=== PATIENT | female | born 1930 | race Caucasian/White ===

== ENCOUNTER 2018-01-27 07:57 | Inpatient (IN) | payer MEDICARE, BC ==
[2018-01-27] MEDS ORDERED: NORMAL SALINE 1000 ML 1,000 ML IV ONE ×2 (08:04→09:54)
--- NOTE | 2018-01-27 08:17 | ER Document Report ---
ED General - General Stated Complaint: URINARY COMPLICATIONS Time Seen by Provider: 01/27/18 08:03 TRAVEL OUTSIDE OF THE [place] IN LAST 30 DAYS: No - HPI Notes: Patient is an 87-year-old female with a history of dementia, chronic kidney disease currently not on dialysis, acid reflux who presents to the ED with daughter complaining of a fever over the last couple days with one episode of nausea and vomiting this morning. Daughter states that she did not have any Tylenol or Motrin at home so she cannot give any to her. Daughter states that she was started on Macrobid for a urinary infection yesterday. Daughter states that she is otherwise been eating and drinking without any difficulties. She is having normal bowel movements. She has not been complaining of any specific pain. Daughter states that her mentation and speech are at baseline, but her behavior was slightly different as she did not want to walk and was shivering when she had her fever. No other concerns or complaints at this time. Denies any headache, fever, head injury, neck pain, changes in vision/speech/mentation/ hearing, URI, sore throat, chest pain, palpitations, syncope, cough, shortness of breath, wheeze, dyspnea, abdominal pain, diarrhea, loss of control of bowel or bladder, numbness/tingling, saddle anesthesia, muscle paralysis/weakness, or rash. - Related Data Allergies/Adverse Reactions: Sulfa (Sulfonamide Antibiotics) Allergy (Verified 06/18/12 11:24) Past Medical History - Social History Smoking Status: Never Smoker Family History: Reviewed & Not Pertinent GI Medical History: Reports: Hx Gastroesophageal Reflux Disease Psychiatric Medical History: Reports: Hx Dementia, Hx Depression Past Surgical History: Reports: Hx Appendectomy, Hx Hysterectomy, Hx Orthopedic Surgery - L elbow - Immunizations Hx Diphtheria, Pertussis, Tetanus Vaccination: Yes Review of Systems - Review of Systems -: Yes All other systems reviewed and negative - as reviewed with daughter as well Physical Exam - Vital signs Vitals: Pulse Ox 96 01/27/18 08:08 - Notes Notes: PHYSICAL EXAMINATION: GENERAL: Well-appearing, well-nourished and in no acute distress. HEAD: Atraumatic, normocephalic. Non-tender. EYES: Pupils equal round and reactive to light, extraocular movements intact, sclera anicteric, conjunctiva are normal. No nystagmus. ENT: Nares patent and without discharge. oropharynx clear without exudates. No tonsilar hypertrophy or erythema. Moist mucous membranes. NECK: Normal range of motion, supple without lymphadenopathy. No rigidity/ meningismus. kernig/brudzinski neg. No midline tenderness. LUNGS: Breath sounds clear to auscultation bilaterally and equal. No wheezes rales or rhonchi. HEART: Regular rate and rhythm without murmurs, rubs, gallops. ABDOMEN: Soft, nontender, nondistended abdomen. No guarding, no rebound. Normal bowel sounds present. No CVA tenderness bilaterally. Musculoskeletal: Ext b/l: FROM to passive/active. Strength 5+/5. No deficits noted. No bony tenderness of extremities. Extremities: No cyanosis, clubbing, or edema b/l. Peripheral pulses 2+. Capillary refill less than 2 seconds. NEUROLOGICAL: NIH 2 for not knowing age/time, but is baseline for pt per daughter. GCS 15. Cranial nerves grossly intact. Normal speech. Normal sensory, motor exams. Reflexes 2+ b/l. MI's negative. Pronator drift negative. Heel/nunes, finger/nose wnl. PSYCH: flat SKIN: Warm, Dry, normal turgor, no rashes or lesions noted. Course - Re-evaluation Re-evalutation: 01/27/18 08:27 EMS gave zofran, tylenol, and 500cc fluid. Pt states that she is feeling better than this morning. Labs, fluids ordered. 01/27/18 09:24 Recheck on patient. No new concerns or complaints. No pain. No nuchal rigidity. We will recheck a temp. Lactic 2.2 and WBC 21.3k with left shift. UA unremarkable, cultures pending. CXR unremarkable. EKG pending Rocephin has been started 01/27/18 09:[address] Auguste, hospitalist, who accepted pt to [facility]. - Vital Signs Vital signs: Temp Pulse Resp BP Pulse Ox 102 F H 94 23 H 166/67 H 93 01/27/18 08:18 01/27/18 08:18 01/27/18 09:01 01/27/18 09:01 01/27/18 09:01 - Laboratory Result Diagrams: 01/27/18 08:06 08/31/18 08:06 Laboratory results interpreted by me: 01/27/18 01/27/18 01/27/18 08:06 08:06 08:06 WBC 21.3 H Seg Neuts % (Manual) 79 H Band Neutrophils % 7 H Lymphocytes % (Manual) 9 L Abs Neuts (Manual) 18.3 H Est GFR (Non-Af Amer) 53 L Glucose 112 H Lactic Acid 2.2 H AST 48 H Discharge - Discharge Clinical Impression: Fever Qualifiers: Fever type: unspecified Qualified Code(s): R50.9 - Fever, unspecified Condition: Fair Disposition: ADMITTED INPATIENT Admitting Provider: Hospitalist - Dr. Auguste Unit Admitted: IMCU Referrals: ALEXANDER TORRES MD [Primary Care Provider] - Follow up as needed
[2018-01-27 08:34] LABS: HEMATOCRIT 38.9 % (36.0-47.0); HEMOGLOBIN 13.2 g/dL (12.0-15.5); MEAN CORPUSCULAR HEMOGLOBIN 30.8 pg (27.0-33.4); MEAN CORPUSCULAR HGB CONC 33.8 g/dL (32.0-36.0); MEAN CORPUSCULAR VOLUME 91 fl (80-97); PLATELET COUNT 254 10^3/uL (150-450); RED BLOOD COUNT 4.27 10^6/uL (3.72-5.28); RED CELL DISTRIBUTION WIDTH 12.9 % (11.5-14.0); WHITE BLOOD COUNT 21.3 10^3/uL (4.0-10.5)
[2018-01-27 08:39] LABS: ALANINE AMINOTRANSFERASE 31 U/L (9-52); ALBUMIN 3.8 g/dL (3.5-5.0); ALKALINE PHOSPHATASE 50 U/L (38-126); ANION GAP 13 (5-19); ASPARTATE AMINO TRANSFERASE 48 U/L (14-36); BILIRUBIN,DIRECT 0.2 mg/dL (0.0-0.4); BILIRUBIN,TOTAL 0.5 mg/dL (0.2-1.3); BLOOD UREA NITROGEN 15 mg/dL (7-20); CARBON DIOXIDE 24 mmol/L (22-30); CHLORIDE 105 mmol/L (98-107); GLUCOSE 112 mg/dL (75-110); POTASSIUM 3.9 mmol/L (3.6-5.0); SODIUM 142.2 mmol/L (137-145); TOTAL PROTEIN 6.5 g/dL (6.3-8.2)
[2018-01-27 08:43] LABS: APPEARANCE,URINE CLEAR; BILIRUBIN,URINE NEGATIVE (NEGATIVE); COLOR,URINE YELLOW; GLUCOSE, URINE NEGATIVE (NEGATIVE); KETONES,URINE NEGATIVE (NEGATIVE); LEUKOCYTE ESTERASE,URINE NEGATIVE (NEGATIVE); NITRITE,URINE NEGATIVE (NEGATIVE); PROTEIN,URINE NEGATIVE (NEGATIVE); UROBILINOGEN,URINE NEGATIVE mg/dL (<2.0)
--- NOTE | 2018-01-27 08:49 | RADIOLOGY REPORT (SQ) ---
EXAM DESCRIPTION: CHEST SINGLE VIEW COMPLETED DATE/TIME: 01/27/2018 8:34 am REASON FOR STUDY: fever COMPARISON: 06/12/2014 EXAM PARAMETERS: NUMBER OF VIEWS: One view. TECHNIQUE: Single frontal radiographic view of the chest acquired. RADIATION DOSE: NA LIMITATIONS: None. FINDINGS: LUNGS AND PLEURA: No opacities, masses or pneumothorax. No pleural effusion. MEDIASTINUM AND HILAR STRUCTURES: No masses. Contour normal. HEART AND VASCULAR STRUCTURES: Heart normal in size. Normal vasculature. BONES: No acute findings. HARDWARE: None in the chest. OTHER: No other significant finding. IMPRESSION: NO ACUTE RADIOGRAPHIC FINDING IN THE CHEST. TECHNICAL DOCUMENTATION: JOB ID: [id number] [employer]- All Rights Reserved Reading location - IP/workstation name: [email or web address]
[2018-01-27] MEDS ORDERED: CEFTRIAXONE 1 GM/D5W RTU 50 ML IV ONE (08:52)
[2018-01-27 08:56] LABS: ABSOLUTE LYMPHOCYTES# (MANUAL) 1.9 10^3/uL (0.5-4.7); ABSOLUTE MONOCYTES # (MANUAL) 1.1 10^3/uL (0.1-1.4); ABSOLUTE NEUTROPHILS# (MANUAL) 18.3 10^3/uL (1.7-8.2); BAND NEUTROPHILS % (MANUAL) 7 % (3-5); BASOPHILS % (MANUAL) 0 % (0-2); EOSINOPHILS % (MANUAL) 0 % (0-6); LYMPHOCYTES % (MANUAL) 9 % (13-45); MONOCYTES % (MANUAL) 5 % (3-13); SEGMENTED NEUTROPHILS % (MAN) 79 % (42-78); TOTAL CELLS COUNTED 100
[2018-01-27 08:57] LABS: PLATELET COMMENT ADEQUATE; RBC MORPHOLOGY COMMENT NORMO-CYTIC/CHROMIC; TOXIC GRANULATION SLIGHT; TOXIC VACUOLATION PRESENT
[2018-01-27] MEDS ORDERED: CEFTRIAXONE INJ 1000 MG VIAL ONE (09:17)
[2018-01-27] MEDS ORDERED: CEFTRIAXONE SODIUM 1,000 MG in NORMAL SALINE 50 ML IV ONE (10:00)
--- NOTE | 2018-01-27 13:03 | EKG REPORT ---
SEVERITY:- ABNORMAL ECG - SINUS RHYTHM BORDERLINE LEFT AXIS DEVIATION NONSPECIFIC T ABNORMALITIES, ANT-LAT LEADS : Confirmed by: Bryon Goodwin MD 27-Jan-2018 13:02:49
[2018-01-27 14:41] LABS: BACTERIA (WET MOUNT) 3+ BACTERIA SEEN; EPITHELIALS (WET MOUNT) 3+ EPITHELIALS SEEN; RBCS (WET MOUNT) FEW RBCS SEEN; T.VAGINALIS (WET MOUNT) NO TRICHOMONAS SEEN; WBCS (WET MOUNT) 1+ WBCS SEEN; YEAST (WET MOUNT) NO YEAST SEEN
[2018-01-27 15:27] LABS: A TYPE INFLUENZA AG NEGATIVE (NEGATIVE); B INFLUENZA AG NEGATIVE (NEGATIVE)
[2018-01-27] MEDS: NORMAL SALINE 1000 ML 1,000 ML IV PRN (15:53)
[2018-01-27] MEDS: HEPARIN SOD (PORCINE) 5,000 UNIT/ML 1 ML SYRINGE SUBCUT SCH ×2 (15:53→21:02)
--- NOTE | 2018-01-27 16:01 | RADIOLOGY REPORT (SQ) ---
EXAM DESCRIPTION: U/S RETROPERITON (RENAL/AORTA) COMPLETED DATE/TIME: 01/27/2018 3:42 pm REASON FOR STUDY: hx of bladder prolapse, r/o pyelo, nephrolith COMPARISON: None. TECHNIQUE: Dynamic and static grayscale images acquired of the kidneys and bladder and recorded on P ACS. Additional selected color Doppler and spectral images recorded. LIMITATIONS: None. FINDINGS: RIGHT KIDNEY: Normal size. Normal echogenicity. No solid or suspicious masses. No hydronep hrosis. No calcifications. LEFT KIDNEY: Normal size. Normal echogenicity. No solid or suspicious masses. No hydronephrosis. No calcifications. BLADDER: Empty. Not visualized. OTHER FINDINGS: No other significant finding. IMPRESSION: NORMAL RENAL ULTRASOUND. TECHNICAL DOCUMENTATION: JOB ID: [id number] [employer] All Rights Reserved Reading location - IP/workstation name: [email or web address]
[2018-01-27 16:36] LABS: CHLAM PCR NOT DETECTED (NOT DETECT); GON PCR NOT DETECTED (NOT DETECT)
[2018-01-27] MEDS: PIPERACILLIN SODIUM/TAZOBACTAM 3.375 GM in NORMAL SALINE 100 ML IV SCH ×2 (17:55→23:29)
[2018-01-27] MEDS ORDERED: FLUCONAZOLE 100 MG TABLET PO ONE (20:45)
[2018-01-27 21:23] LABS: ABSOLUTE BASOPHILS # (AUTO) 0.1 10^3/uL (0.0-0.2); ABSOLUTE EOSINOPHILS # (AUTO) 0.3 10^3/uL (0.0-0.6); ABSOLUTE LYMPHOCYTES (AUTO) 3.2 10^3/uL (0.5-4.7); ABSOLUTE MONOCYTES (AUTO) 1.2 10^3/uL (0.1-1.4); ABSOLUTE NEUT (AUTO) 18.3 10^3/uL (1.7-8.2); BASOPHILS % (AUTO) 0.3 % (0-2); EOSINOPHILS % (AUTO) 1.4 % (0-6); HEMATOCRIT 36.1 % (36.0-47.0); MEAN CORPUSCULAR HEMOGLOBIN 30.7 pg (27.0-33.4); MEAN CORPUSCULAR HGB CONC 33.3 g/dL (32.0-36.0); MEAN CORPUSCULAR VOLUME 92 fl (80-97); MONOCYTES % (AUTO) 5.2 % (3-13); PLATELET COUNT 234 10^3/uL (150-450); RED BLOOD COUNT 3.92 10^6/uL (3.72-5.28); SEGMENTED NEUTROPHILS % (AUTO) 79.1 % (42-78); TOTAL CELLS COUNTED % (AUTO) 100 %; WHITE BLOOD COUNT 23.1 10^3/uL (4.0-10.5)
[2018-01-28] MEDS: NORMAL SALINE 1000 ML 1,000 ML IV PRN ×2 (02:25→16:25)
[2018-01-28] MEDS: PIPERACILLIN SODIUM/TAZOBACTAM 3.375 GM in NORMAL SALINE 100 ML IV SCH ×4 (05:38→23:53)
[2018-01-28] MEDS: HEPARIN SOD (PORCINE) 5,000 UNIT/ML 1 ML SYRINGE SUBCUT SCH ×3 (05:45→21:30)
[2018-01-28] MEDS ORDERED: VANCOMYCIN HCL 0 MG in DEXTROSE 5%-WATER 250 ML IV NR (07:30)
[2018-01-28] MEDS ORDERED: VANCOMYCIN HCL 1,250 MG in DEXTROSE 5%-WATER 250 ML IV ONE (07:45)
[2018-01-28 08:23] LABS: ABSOLUTE BASOPHILS # (AUTO) 0.1 10^3/uL (0.0-0.2); ABSOLUTE EOSINOPHILS # (AUTO) 0.5 10^3/uL (0.0-0.6); ABSOLUTE LYMPHOCYTES (AUTO) 2.5 10^3/uL (0.5-4.7); ABSOLUTE MONOCYTES (AUTO) 0.8 10^3/uL (0.1-1.4); ABSOLUTE NEUT (AUTO) 11.2 10^3/uL (1.7-8.2); BASOPHILS % (AUTO) 0.7 % (0-2); HEMATOCRIT 37.4 % (36.0-47.0); HEMOGLOBIN 12.7 g/dL (12.0-15.5); LYMPHOCYTES % (AUTO) 16.5 % (13-45); MEAN CORPUSCULAR HEMOGLOBIN 30.7 pg (27.0-33.4); MEAN CORPUSCULAR VOLUME 90 fl (80-97); MONOCYTES % (AUTO) 5.6 % (3-13); PLATELET COUNT 220 10^3/uL (150-450); RED BLOOD COUNT 4.14 10^6/uL (3.72-5.28); RED CELL DISTRIBUTION WIDTH 13.1 % (11.5-14.0); SEGMENTED NEUTROPHILS % (AUTO) 74.2 % (42-78); TOTAL CELLS COUNTED % (AUTO) 100 %; WHITE BLOOD COUNT 15.1 10^3/uL (4.0-10.5)
[2018-01-28] MEDS: VANCOMYCIN HCL 750 MG in DEXTROSE 5%-WATER 250 ML IV SCH (09:21)
[2018-01-28] MEDS: GUAIFENESIN SYRP 200 MG/10 ML UDC PO SCH ×2 (13:49→17:51)
--- NOTE | 2018-01-28 15:21 | PDOC H&P ---
History of Present Illness Admission Date/PCP: 01/27/18 11:51 ALEXANDER TORRES MD History of Present Illness: EZRA IVAN is a 87 year old female with a past medical history of hypertension, CKD from long-standing uncontrolled hypertension, dementia, GERD, hypothyroidism, history of urinary bladder prolapse and recurrent urinary tract infections who was brought in because of fever and chills. Patient is not able to carry out appropriate conversations in her baseline. History is obtained from the daughter who says that patient has been having recurrent urinary tract infections in between June and December of this year she had a total of 6 episodes of UTI. She has been treated alternatingly with Augmentin and nitrofurantoin. Daughter says that patient was recently diagnosed again with UTI the other day and was sent home on Macrobid. She says that patient does not complain of a UDS because of her dementia. Daughter says that yesterday patient was noted to be more confused than usual. She was also noted to be increasingly weak last night. This morning around 3 AM, patient woke up with high fever with a temperature 102.8F and was having chills and was shivering. Patient also became more lethargic and sleepy. Her daughter says that patient has had a pessary placed and since then she has been having recurrent vaginal greenish malodorous discharge over the past 4-6 months. She says that patient was evaluated by a uro-brothel keeper in [place] and that patient's pessary was removed a few months and it was reportedly filled with purulent material. Patient says that patient was treated for her vaginal discharge a few weeks ago and this has been improving. Past Medical History GI Medical History: Reports: Gastroesophageal Reflux Disease Psychiatric Medical History: Reports: Dementia, Depression Past Surgical History Past Surgical History: Reports: Appendectomy, Hysterectomy, Orthopedic Surgery - L elbow Social History Smoking Status: Never Smoker Frequency of Alcohol Use: None Hx Recreational Drug Use: No Drugs: None Hx Prescription Drug Abuse: No - Advance Directive Resuscitation Status: Do Not Resuscitate Family History Family History: Reviewed & Not Pertinent Parental Family History Reviewed: Yes - no premautre CAD Children Family History Reviewed: No Sibling(s) Family History Reviewed.: No Medication/Allergy Home Medications: Calcium Carbonate/Vitamin D3 [Calcium 600 + Vit D Caplet] 1 tab-cap PO DAILY Cholecalciferol (Vitamin D3) [Vitamin D3 2000 unit Tablet] 2,000 unit PO DAILY 01/27/18 Cranberry Conc/Ascorbic Acid [Cranberry Concentrate Softgel] 3 tab PO DAILY Docusate Sodium [Colace 100 mg Capsule] 300 mg PO DAILY 01/27/18 Escitalopram Oxalate [Lexapro 10 mg Tablet] 10 mg PO MOWEFR 01/27/18 Estrogens,Conjugated [Premarin Vaginal Cream (0.625 mg/gm) 30 gm] 30 gm VG [id number] 01/27/18 L.acidoph,Paracasei, B.lactis [Probiotic] 1 each PO DAILY 01/27/18 Levothyroxine Sodium [Synthroid] 75 mcg PO DAILY 01/27/18 Meclizine HCl [Antivert 12.5 mg Tablet] 12.5 mg PO DAILYP PRN 01/27/18 Mirabegron [Myrbetriq] 50 mg PO DAILY 01/27/18 Multivitamin [One-A-Day Essential] 1 each PO DAILY 01/27/18 Omeprazole Magnesium [Prilosec Otc] 20 mg PO DAILY 01/27/18 Allergies/Adverse Reactions: Sulfa (Sulfonamide Antibiotics) Allergy (Verified 06/18/12 11:24) Review of Systems All systems: reviewed and no additional remarkable complaints except as stated - As mentioned in HPI Physical Exam Vital Signs: Temp Pulse Resp BP Pulse Ox 97.8 F 71 16 143/52 H 97 01/27/18 15:55 01/27/18 15:55 01/27/18 15:55 01/27/18 15:55 01/27/18 15:55 Intake & Output 01/26/18 01/27/18 01/28/18 06:59 06:59 06:59 Intake Total 1300 Output Total 1425 Balance -125 Weight 140 lb 3.424 oz General appearance: PRESENT: no acute distress, well-developed, well-nourished Head exam: PRESENT: atraumatic, normocephalic Eye exam: PRESENT: conjunctiva pink, EOMI, PERRLA. ABSENT: scleral icterus Ear exam: PRESENT: normal external ear exam Neck exam: ABSENT: carotid bruit, JVD, lymphadenopathy, thyromegaly Respiratory exam: PRESENT: clear to auscultation christen. ABSENT: rales, rhonchi, wheezes Cardiovascular exam: PRESENT: RRR. ABSENT: diastolic murmur, rubs, systolic murmur Pulses: PRESENT: normal dorsalis pedis pul GI/Abdominal exam: PRESENT: normal bowel sounds, soft. ABSENT: distended, guarding, mass, organolmegaly, rebound, tenderness Rectal exam: PRESENT: deferred Gentrourinary exam: PRESENT: other - Pelvic examination as well as a speculum examination was done. Pelvic examination reveals seen whitish cervical discharge, [id number]. Also noted is prominence of the urinary bladder against the anterior vaginal wall. Samples were obtained and sent for cultures. There is labial erythema. Neurological exam: PRESENT: other - Patient was given Phenergan in the ER because of nausea and one episode of vomiting and patient became lethargic after the Phenergan. She is arousable and appears appropriately responsive to stimulus. Results Laboratory Results: 01/27/18 12:37 Lactic Acid 2.0 Impressions: Renal Ultrasound 01/27/18 00:00 IMPRESSION: NORMAL RENAL ULTRASOUND. Chest X-Ray 01/27/18 08:21 IMPRESSION: NO ACUTE RADIOGRAPHIC FINDING IN THE CHEST. Assessment & Plan - Diagnosis (1) Sepsis Is this a current diagnosis for this admission?: Yes Plan: Sepsis likely secondary to pyelonephritis. Patient was recently treated for urinary tract infection. She has been recently treated with Macrobid. Will start Zosyn at 40 meantime. Will await blood and urine cultures. Lactic acid slightly elevated. We will continue IV fluids and will continue to cycle lactic acid levels. (2) Vaginal discharge Is this a current diagnosis for this admission?: Yes Plan: Pelvic and speculum examination were done. Examination with feels thin whitish non-orders discharge. Samples were obtained and sent for a wet prep and culture. Patient does have some vaginal erythema and white curd-like material around the labia. Will treat with a dose of Diflucan. (3) Hypothyroidism Is this a current diagnosis for this admission?: Yes Plan: Stable. Will resume home synthroid. - Time Time Spent: 50 to 70 Minutes
--- NOTE | 2018-01-28 15:42 | PDOC PROGRESS REPORT ---
Subjective Progress Note for:: 01/28/18 Subjective:: Ms. Donis was admitted for sepsis secondary to possible pyelonephritis. She was started on broad spectrum antibiotics. This morning, patient syas she feels better today but has been having minimally productive cough. She does have crackles on the left base today which was not appreciated yesterday. No recurrence of fever or chills. Denies shortness of breath or chest pain. Reason For Visit: SEPSIS Physical Exam Vital Signs: Temp Pulse Resp BP Pulse Ox 98.8 F 73 16 147/59 H 93 01/28/18 11:27 01/28/18 11:27 01/28/18 11:27 01/28/18 11:27 01/28/18 11:27 Intake & Output 01/27/18 01/28/18 01/29/18 06:59 06:59 06:59 Intake Total 2500 350 Output Total 3425 Balance -925 350 Weight 140 lb 3.424 oz General appearance: PRESENT: no acute distress, well-developed, well-nourished Head exam: PRESENT: atraumatic, normocephalic Eye exam: PRESENT: conjunctiva pink, EOMI, PERRLA. ABSENT: scleral icterus Ear exam: PRESENT: normal external ear exam Mouth exam: PRESENT: moist, tongue midline Neck exam: ABSENT: carotid bruit, JVD, lymphadenopathy, thyromegaly Respiratory exam: PRESENT: clear to auscultation christen, crackles - crackles on the left base. ABSENT: rhonchi, wheezes Cardiovascular exam: PRESENT: RRR. ABSENT: diastolic murmur, rubs, systolic murmur Pulses: PRESENT: normal dorsalis pedis pul GI/Abdominal exam: PRESENT: normal bowel sounds, soft. ABSENT: distended, guarding, mass, organolmegaly, rebound, tenderness Rectal exam: PRESENT: deferred Neurological exam: PRESENT: alert, awake, oriented to person Results Laboratory Results: 01/28/18 08:02 01/27/18 01/27/18 01/28/18 18:35 21:10 08:02 WBC 23.1 H 15.1 H RBC 3.92 4.14 Hgb 12.0 12.7 Hct 36.1 37.4 MCV 92 90 MCH 30.7 30.7 MCHC 33.3 34.0 RDW 13.0 13.1 Plt Count 234 220 Seg Neutrophils % 79.1 H 74.2 Lymphocytes % 14.0 16.5 Monocytes % 5.2 5.6 Eosinophils % 1.4 3.0 Basophils % 0.3 0.7 Absolute Neutrophils 18.3 H 11.2 H Absolute Lymphocytes 3.2 2.5 Absolute Monocytes 1.2 0.8 Absolute Eosinophils 0.3 0.5 Absolute Basophils 0.1 0.1 Lactic Acid 1.2 01/28/18 08:15 WBC RBC Hgb Hct MCV MCH MCHC RDW Plt Count Seg Neutrophils % Lymphocytes % Monocytes % Eosinophils % Basophils % Absolute Neutrophils Absolute Lymphocytes Absolute Monocytes Absolute Eosinophils Absolute Basophils Lactic Acid 0.8 Impressions: Renal Ultrasound 01/27/18 00:00 IMPRESSION: NORMAL RENAL ULTRASOUND. Chest X-Ray 01/27/18 08:21 IMPRESSION: NO ACUTE RADIOGRAPHIC FINDING IN THE CHEST. Assessment & Plan - Diagnosis (1) Sepsis Is this a current diagnosis for this admission?: Yes Plan: Sepsis likely secondary to pyelonephritis. Lactic acid was initially elevated but has trended back to normal. Patient did came in febrile and was slightly tachypneic at 23. Chest x-ray yesterday was unremarkable. However this morning , patient is having minimally productive cough. She does have left basilar crackles this morning which was not appreciated yesterday upon admission. Patient will be also treated empirically for pneumonia. (2) Vaginal discharge Is this a current diagnosis for this admission?: Yes Plan: Pelvic and speculum examination were done on admission. Examination shows thin whitish non malodorous discharge. Wet mount was unremarkable. Patient does have some vaginal erythema and white curd-like material around the labia. She was empirically treated with Diflucan. (3) Hypothyroidism Is this a current diagnosis for this admission?: Yes Plan: Stable. Continue synthroid. - Time Time Spent with patient: 15-24 minutes
[2018-01-28] MEDS ORDERED: ESTROGENS,CONJUGATED 0.625 MG/1 GM 30 GM TUBE VG SCH (15:45)
[2018-01-28] MEDS ORDERED: LEVOTHYROXINE SODIUM 0.075 MG TABLET PO SCH (16:00)
[2018-01-29] MEDS: HEPARIN SOD (PORCINE) 5,000 UNIT/ML 1 ML SYRINGE SUBCUT SCH ×3 (06:34→21:46)
[2018-01-29] MEDS: HYDRALAZINE HCL INJ/PF 20 MG/1 ML SDV IV PRN ×2 (06:34→23:37)
[2018-01-29] MEDS: PIPERACILLIN SODIUM/TAZOBACTAM 3.375 GM in NORMAL SALINE 100 ML IV SCH ×4 (06:35→23:38)
[2018-01-29] MEDS: LEVOTHYROXINE SODIUM 0.075 MG TABLET PO SCH (06:35)
[2018-01-29] MEDS: NORMAL SALINE 1000 ML 1,000 ML IV PRN ×2 (07:00→16:00)
[2018-01-29] MEDS: ACETAMINOPHEN 325 MG TABLET PO PRN (07:50)
[2018-01-29] MEDS: VANCOMYCIN HCL 750 MG in DEXTROSE 5%-WATER 250 ML IV SCH (10:34)
[2018-01-29] MEDS: GUAIFENESIN SYRP 200 MG/10 ML UDC PO SCH ×3 (10:34→17:26)
[2018-01-29] MEDS: DOCUSATE SODIUM 100 MG CAPSULE PO SCH (10:34)
[2018-01-29] MEDS ORDERED: FLUTICASONE NASAL SPRAY 50 MCG/SPRY 120 SPRAY/16 GM NASL SCH (15:30)
--- NOTE | 2018-01-29 15:31 | PDOC PROGRESS REPORT ---
Subjective Progress Note for:: 01/29/18 Subjective:: Ms. Donis was admitted for sepsis secondary to possible pyelonephritis. She was started on broad spectrum antibiotics. This morning, patient says she feels better today but still feels a little weak. She has minimally productive cough. Sputum culture has been sent. No recurrence of fever or chills. Denies shortness of breath or chest pain. She complains of dull bitemporal headache and congestion. She does have mild tenderness over the ethmoid and maxillary sinuses. Reason For Visit: SEPSIS Physical Exam Vital Signs: Temp Pulse Resp BP Pulse Ox 97.5 F 58 L 16 123/43 L 96 01/29/18 11:07 01/29/18 14:00 01/29/18 11:07 01/29/18 11:07 01/29/18 11:07 Intake & Output 01/28/18 01/29/18 01/30/18 06:59 06:59 06:59 Intake Total 2500 1550 450 Output Total 3425 1000 Balance -925 550 450 Weight 140 lb 3.424 oz 138 lb 3.677 oz General appearance: PRESENT: no acute distress, well-developed, well-nourished Head exam: PRESENT: atraumatic, normocephalic, other - Mild tenderness over the ethmoid and paranasal sinuses. Eye exam: PRESENT: conjunctiva pink, EOMI, PERRLA. ABSENT: scleral icterus Ear exam: PRESENT: normal external ear exam Mouth exam: PRESENT: moist, tongue midline Neck exam: ABSENT: carotid bruit, JVD, lymphadenopathy, thyromegaly Respiratory exam: PRESENT: clear to auscultation christen, rales - Minimal rales in the left base improved from yesterday.. ABSENT: rhonchi, wheezes Cardiovascular exam: PRESENT: RRR. ABSENT: diastolic murmur, rubs, systolic murmur Pulses: PRESENT: normal dorsalis pedis pul GI/Abdominal exam: PRESENT: normal bowel sounds, soft. ABSENT: distended, guarding, mass, organolmegaly, rebound, tenderness Rectal exam: PRESENT: deferred Neurological exam: PRESENT: alert, awake, oriented to person, oriented to place Results Laboratory Results: 01/28/18 08:02 01/28/18 08:00 Nasophary (Mrsa Only) MRSA Surveillance Culture - Final Impressions: Renal Ultrasound 01/27/18 00:00 IMPRESSION: NORMAL RENAL ULTRASOUND. Chest X-Ray 01/27/18 08:21 IMPRESSION: NO ACUTE RADIOGRAPHIC FINDING IN THE CHEST. Assessment & Plan - Diagnosis (1) Sepsis Is this a current diagnosis for this admission?: Yes Plan: Sepsis likely secondary to pyelonephritis vs pneumonia. Lactic acid was initially elevated but has trended back to normal. Patient did came in febrile and was slightly tachypneic at 23. Chest x-ray yesterday was unremarkable. However she does have minimally productive cough and had left basilar crackles. Plan to switch to Levaquin tomorrow pending final culture results. (2) Vaginal discharge Is this a current diagnosis for this admission?: Yes Plan: Pelvic and speculum examination were done on admission. Examination showed thin whitish non malodorous discharge. Wet mount was unremarkable. Patient did have some vaginal erythema and white curd-like material around the labia. She was empirically treated with Diflucan. (3) Hypothyroidism Is this a current diagnosis for this admission?: Yes Plan: Stable. Continue synthroid. (4) Pneumonia Is this a current diagnosis for this admission?: Yes Plan: Chest x-ray upon admission did not show infiltrates. However patient did have minimally productive cough and came in slightly tachypneic. On second day of admission, she had appreciable left basilar crackles. Continue IV antibiotics. Pending sputum culture. Her daughter does say that she might have some episodes of aspiration as she does occasionally choke at home. Will consult speech therapy for swallow eval. (5) UTI (urinary tract infection) with pyuria Is this a current diagnosis for this admission?: Yes Plan: Continue IV antibiotics. Final cultures pending. - Time Time Spent with patient: 15-24 minutes
[2018-01-29] MEDS ORDERED: FLUTICASONE NASAL SPRAY 50 MCG/SPRY 120 SPRAY/16 GM NASL ONE (15:45)
[2018-01-29] MEDS: FLUTICASONE NASAL SPRAY 50 MCG/SPRY 120 SPRAY/16 GM NASL SCH (21:46)
[2018-01-30] MEDS: NORMAL SALINE 1000 ML 1,000 ML IV PRN (03:26)
[2018-01-30] MEDS: ACETAMINOPHEN 325 MG TABLET PO PRN (03:26)
[2018-01-30] MEDS: PIPERACILLIN SODIUM/TAZOBACTAM 3.375 GM in NORMAL SALINE 100 ML IV SCH ×2 (06:01→12:52)
[2018-01-30] MEDS: HEPARIN SOD (PORCINE) 5,000 UNIT/ML 1 ML SYRINGE SUBCUT SCH (06:02)
[2018-01-30] MEDS: LEVOTHYROXINE SODIUM 0.075 MG TABLET PO SCH (06:02)
[2018-01-30 07:16] LABS: ABSOLUTE BASOPHILS # (AUTO) 0.1 10^3/uL (0.0-0.2); ABSOLUTE EOSINOPHILS # (AUTO) 0.3 10^3/uL (0.0-0.6); ABSOLUTE LYMPHOCYTES (AUTO) 2.9 10^3/uL (0.5-4.7); ABSOLUTE MONOCYTES (AUTO) 0.7 10^3/uL (0.1-1.4); BASOPHILS % (AUTO) 0.7 % (0-2); EOSINOPHILS % (AUTO) 4.1 % (0-6); HEMATOCRIT 39.2 % (36.0-47.0); HEMOGLOBIN 13.4 g/dL (12.0-15.5); LYMPHOCYTES % (AUTO) 36.4 % (13-45); MEAN CORPUSCULAR HEMOGLOBIN 31.1 pg (27.0-33.4); MEAN CORPUSCULAR HGB CONC 34.3 g/dL (32.0-36.0); MEAN CORPUSCULAR VOLUME 91 fl (80-97); MONOCYTES % (AUTO) 8.7 % (3-13); PLATELET COUNT 230 10^3/uL (150-450); RED BLOOD COUNT 4.33 10^6/uL (3.72-5.28); RED CELL DISTRIBUTION WIDTH 13.3 % (11.5-14.0); SEGMENTED NEUTROPHILS % (AUTO) 50.1 % (42-78); TOTAL CELLS COUNTED % (AUTO) 100 %
[2018-01-30] MEDS: GUAIFENESIN SYRP 200 MG/10 ML UDC PO SCH (10:02)
[2018-01-30] MEDS: VANCOMYCIN HCL 750 MG in DEXTROSE 5%-WATER 250 ML IV SCH (10:02)
[2018-01-30] MEDS: DOCUSATE SODIUM 100 MG CAPSULE PO SCH (10:02)
[2018-01-30] MEDS: FLUTICASONE NASAL SPRAY 50 MCG/SPRY 120 SPRAY/16 GM NASL SCH (10:03)
[2018-01-30 14:24] VITALS: BP 129/48
[2018-01-30] MEDS ORDERED: ESCITALOPRAM OXALATE 10 MG TABLET PO SCH (15:42)
--- NOTE | 2018-01-30 16:43 | PDOC DISCHARGE SUMMARY ---
General - Admit/Disc Date/PCP Admission Date/Primary Care Provider: 01/27/18 11:51 ALEXANDER TORRES MD Discharge Date: 01/30/18 - Discharge Diagnosis (1) Sepsis Is this a current diagnosis for this admission?: Yes (2) Vaginal discharge Is this a current diagnosis for this admission?: Yes (3) Hypothyroidism Is this a current diagnosis for this admission?: Yes (4) Pneumonia Is this a current diagnosis for this admission?: Yes (5) UTI (urinary tract infection) with pyuria Is this a current diagnosis for this admission?: Yes - Additional Information Resuscitation Status: Do Not Resuscitate Prescriptions: Fluticasone Propionate [Flonase Nasal [place] 50 Mcg/[place] 16 gm] 1 spray NASL Q12 PRN #1 spray.pump PRN Reason: Guaifenesin [Robitussin Syrup 200 mg/10 ml Ud Cup] 200 mg PO TID PRN #1 udc PRN Reason: Levofloxacin [Levaquin 500 mg Tablet] 500 mg PO DAILY #4 tablet Home Medications: Calcium Carbonate/Vitamin D3 [Calcium 600-Vit D3 400 Caplet] 1 tab-cap PO DAILY 01/27/18 Cholecalciferol (Vitamin D3) [Vitamin D3 2000 unit Tablet] 2,000 unit PO DAILY 01/27/18 Cranberry Conc/Ascorbic Acid [Cranberry Concentrate Softgel] 3 tab PO DAILY Docusate Sodium [Colace 100 mg Capsule] 300 mg PO DAILY 01/27/18 Escitalopram Oxalate [Lexapro 10 mg Tablet] 10 mg PO MOWEFR 01/27/18 Estrogens,Conjugated [Premarin Vaginal Cream (0.625 mg/gm) 30 gm] 30 gm VG [id number] 01/27/18 L.acidoph,Paracasei, B.lactis [Probiotic] 1 each PO DAILY 01/27/18 Levothyroxine Sodium [Synthroid] 75 mcg PO DAILY 01/27/18 Meclizine HCl [Antivert 12.5 mg Tablet] 12.5 mg PO DAILYP PRN 01/27/18 Mirabegron [Myrbetriq] 50 mg PO DAILY 01/27/18 Multivitamin [One-A-Day Essential] 1 each PO DAILY 01/27/18 Omeprazole Magnesium [Prilosec Otc] 20 mg PO DAILY 01/27/18 Fluticasone Propionate [Flonase Nasal [place] 50 Mcg/[place] 16 gm] 1 spray NASL Q12 PRN #1 spray.pump 01/30/18 Guaifenesin [Robitussin Syrup 200 mg/10 ml Ud Cup] 200 mg PO TID PRN #1 udc 08/14 Levofloxacin [Levaquin 500 mg Tablet] 500 mg PO DAILY #4 tablet 01/30/18 History of Present Illness History of Present Illness: EZRA DONIS is a 87 year old female with a past medical history of hypertension, CKD from long-standing uncontrolled hypertension, dementia, GERD, hypothyroidism, history of urinary bladder prolapse and recurrent urinary tract infections who was brought in because of fever and chills. Patient is not able to carry out appropriate conversations in her baseline. History is obtained from the daughter who says that patient has been having recurrent urinary tract infections in between June and December of this year she had a total of 6 episodes of UTI. She has been treated alternatingly with Augmentin and nitrofurantoin. Daughter says that patient was recently diagnosed again with UTI the other day and was sent home on Macrobid. She says that patient does not complain of a UDS because of her dementia. Daughter says that yesterday patient was noted to be more confused than usual. She was also noted to be increasingly weak last night. This morning around 3 AM, patient woke up with high fever with a temperature 102.8F and was having chills and was shivering. Patient also became more lethargic and sleepy. Her daughter says that patient has had a pessary placed and since then she has been having recurrent vaginal greenish malodorous discharge over the past 4-6 months. She says that patient was evaluated by a uro-dockmaster in [place] and that patient's pessary was removed a few months and it was reportedly filled with purulent material. Patient says that patient was treated for her vaginal discharge a few weeks ago and this has been improving. Hospital Course Hospital Course: Ms. Donis is an 87-year-old female with a past medical history of dementia and hypothyroidism who was admitted for sepsis secondary to possible pyelonephritis and pneumonia. Lactic acid level was slightly elevated. She was started on broad spectrum antibiotics (vancomycin and Zosyn) and IV fluids. Lactic acid trended back to normal. Daughter also reported patient has been having chronic on and off vaginal discharge which have been improving in the past few days. Pelvic and speculum examination was done which only revealed the thin whitish non-malodorous discharge. Cultures and wet prep was sent and came back negative. Patient did slightly erythematous lobule with white curd- like material and was empirically treated with Diflucan. Blood and urine cultures were obtained and came back negative. Although patient's chest x-ray did not show infiltrates, patient did have productive cough and crackles in the left base hence she was also treated for pneumonia. Patient significantly improved over the next few days and she was switched to levofloxacin which she will continue for another 4 days at home. Patient has a history of infected pessary for her bladder prolapse. Apparently this was previously removed by a uro-dockmaster. Daughter says that patient has a follow-up with her urologist tomorrow. Physical Exam Vital Signs: Temp Pulse Resp BP Pulse Ox 97.8 F 57 L 16 138/61 H 98 01/30/18 07:48 01/30/18 07:48 01/30/18 07:48 01/30/18 07:48 01/30/18 07:48 Intake & Output 01/29/18 01/30/18 01/31/18 06:59 06:59 06:59 Intake Total 2550 2950 Output Total 1000 Balance 1550 2950 Weight 138 lb 3.677 oz 140 lb 3.424 oz General appearance: PRESENT: no acute distress, well-developed, well-nourished Head exam: PRESENT: atraumatic, normocephalic Eye exam: PRESENT: conjunctiva pink, EOMI, PERRLA. ABSENT: scleral icterus Ear exam: PRESENT: normal external ear exam Mouth exam: PRESENT: moist, tongue midline Neck exam: ABSENT: carotid bruit, JVD, lymphadenopathy, thyromegaly Respiratory exam: PRESENT: clear to auscultation christen, crackles - minimal crackles on the left base, significantly improved from yesterday. ABSENT: rales , rhonchi, wheezes Cardiovascular exam: PRESENT: RRR. ABSENT: diastolic murmur, rubs, systolic murmur Pulses: PRESENT: normal dorsalis pedis pul GI/Abdominal exam: PRESENT: normal bowel sounds, soft. ABSENT: distended, guarding, mass, organolmegaly, rebound, tenderness Rectal exam: PRESENT: deferred Neurological exam: PRESENT: alert, awake, oriented to person, oriented to place Results Laboratory Results: 01/30/18 07:03 01/30/18 07:03 WBC 8.0 RBC 4.33 Hgb 13.4 Hct 39.2 MCV 91 MCH 31.1 MCHC 34.3 RDW 13.3 Plt Count 230 Seg Neutrophils % 50.1 Lymphocytes % 36.4 Monocytes % 8.7 Eosinophils % 4.1 Basophils % 0.7 Absolute Neutrophils 4.0 Absolute Lymphocytes 2.9 Absolute Monocytes 0.7 Absolute Eosinophils 0.3 Absolute Basophils 0.1 01/28/18 08:00 Nasophary ([facility] Only) MRSA Surveillance Culture - Final Impressions: Renal Ultrasound 01/27/18 00:00 IMPRESSION: NORMAL RENAL ULTRASOUND. Chest X-Ray 01/27/18 08:21 IMPRESSION: NO ACUTE RADIOGRAPHIC FINDING IN THE CHEST. Qualifiers - * PATIENT BEING DISCHARGED WITH ANY OF THE FOLLOWING DIAGNOSIS: No
== END 2018-01-30 15:40 | disposition home or self-care (01) | DRG 871 ==
LOC: ER 07:57 → EH 11:51 → 3W 13:36
PROVIDERS: ADMIT Internal Medicine; ATTEND Internal Medicine
DX: A41.9 Sepsis, unspecified organism (principal); J18.9 Pneumonia, unspecified organism; N39.0 Urinary tract infection, site not specified; N89.8 Other specified noninflammatory disorders of vagina; Z66 Do not resuscitate; K21.9 Gastro-esophageal reflux disease without esophagitis; E03.9 Hypothyroidism, unspecified; I10 Essential (primary) hypertension; F03.90 Unspecified dementia, unspecified severity, without behavioral disturbance, psychotic disturbance, mood disturbance, and anxiety; Z79.899 Other long term (current) drug therapy; Z90.710 Acquired absence of both cervix and uterus; Z88.2 Allergy status to sulfonamides
CPT/HCPCS: 36415; 71045; 76770; 80053; 81001; 83605; 85025; 87040; 87070; 87086; 87205; 87210; 87491; 87591; 87804; 93005; 93010; 96361; 96365; 99285; J0360; J0696; J1644; J2543; J3370; J3490; J7030; J7060

== ENCOUNTER 2019-08-19 16:06 | Emergency (ER) | payer MEDICARE, BC ==
--- NOTE | 2019-08-19 17:10 | ER Document Report ---
ED General Pain - General Stated Complaint: COUGH Time Seen by Provider: 08/19/19 16:15 Primary Care Provider: HARI MAZARIEGOS MD [Primary Care Provider] - Follow up as needed Notes: 89 year old female DNR arrives via EMS with a cough, increased generalized weakness and fever today. She is a debilitated, frail, demented and lives locally with her daughter. Her dementia is moderate and she has hypothyroidism also. She has a h/o uti's, pneumonia and sepsis also. She can provide no reasonable history and history is obtained from daughter and old chart. TRAVEL OUTSIDE OF THE [place] IN LAST 30 DAYS: No - Related Data Allergies/Adverse Reactions: Sulfa (Sulfonamide Antibiotics) Allergy (Verified 08/19/19 16:45) Past Medical History - Social History Smoking Status: Unknown if Ever Smoked Family History: Reviewed & Not Pertinent Renal/ Medical History: Denies: Hx Peritoneal Dialysis GI Medical History: Reports: Hx Gastroesophageal Reflux Disease Psychiatric Medical History: Reports: Hx Dementia, Hx Depression Past Surgical History: Reports: Hx Appendectomy, Hx Hysterectomy, Hx Orthopedic Surgery - L elbow - Immunizations Hx Diphtheria, Pertussis, Tetanus Vaccination: Yes Review of Systems - Review of Systems -: Yes ROS unobtainable due to patient's medical condition Physical Exam - Vital signs Vitals: Resp Pulse Ox 16 98 08/19/19 16:16 08/19/19 16:16 Interpretation: Normal - General General appearance: Appears well, Alert - HEENT Head: Normocephalic, Atraumatic Eyes: Normal Pupils: PERRL - Respiratory Respiratory status: No respiratory distress Chest status: Nontender Breath sounds: Normal Chest palpation: Normal - Cardiovascular Rhythm: Regular Heart sounds: Normal auscultation Murmur: No - Abdominal Inspection: Normal Distension: No distension Bowel sounds: Normal Tenderness: Nontender Organomegaly: No organomegaly - Back Back: Normal, Nontender - Extremities General upper extremity: Normal inspection, Nontender, Normal color, Normal ROM, Normal temperature General lower extremity: Normal inspection, Nontender, Normal color, Normal ROM, Normal temperature, Normal weight bearing. No: Craig's sign - Neurological Neuro grossly intact: Yes Cognition: Normal Orientation: AAOx4 [place] Coma Scale Eye Opening: Spontaneous Arturo Coma Scale Verbal: Oriented [place] Coma Scale Motor: Obeys Commands [place] Coma Scale Total: 15 Speech: Normal Motor strength normal: LUE, RUE, LLE, RLE Sensory: Normal - Psychological Associated symptoms: Normal affect, Normal mood - Skin Skin Temperature: Warm Skin Moisture: Dry Skin Color: Normal Course - Re-evaluation Re-evalutation: 08/20/19 09:48 MDM Frail elderly female is here with daughter - who is medical poa - over concern of cough and low grade temp (100.6 on otic thermometer) last evening. She has at least moderate dementia and h/o aspiration in the past. Also prone to UTI. She is a DNR per daughter also. Workup here shows no evidence of serious infection. Flu is -. Will send covid-[address] on keflex for cysitis. Discussed with daughter and instructed regarding follow up which she expressed understanding for. - Vital Signs Vital signs: Temp Pulse Resp BP Pulse Ox 14 166/64 H 96 08/19/19 21:01 08/19/19 21:01 08/19/19 21:01 - Laboratory Result Diagrams: 08/19/19 16:17 08/19/19 16:17 Laboratory results interpreted by me: 08/19/19 08/19/19 08/19/19 16:17 16:17 18:26 WBC 12.2 H Absolute Neuts (auto) 8.3 H BUN 27 H Est GFR ( Amer) 53 L Est GFR (MDRD) Non-Af 44 L Ur Leukocyte Esterase SMALL H - Diagnostic Test Radiology reviewed: Image reviewed, Reports reviewed - EKG Interpretation by Me EKG shows normal: Sinus rhythm Rate: Normal Rhythm: NSR - NSR LAD [address] elevation or depression repolarization abnormality my interpretation. Discharge - Discharge Clinical Impression: Cough, Cystitis Dementia Qualifiers: Dementia type: unspecified type Dementia behavioral disturbance: with behavioral disturbance Qualified Code(s): F03.91 - Unspecified dementia with behavioral disturbance Condition: Good Disposition: HOME, SELF-CARE Instructions: Cough Suppressant & Expectorant Medications, Fever ([facility]), Urinary Tract Infection ([facility]) Additional Instructions: Do not see visitors while the covid virus is occuring. Return here for chest pain, shortness of breath, increasing fever or other problems or other concerns. Prescriptions: Cephalexin Monohydrate [Keflex 250 mg/5 ml Susp] 500 mg PO TID 7 Days #1 bottle Referrals: HARI MAZARIEGOS MD [Primary Care Provider] - Follow up as needed
[2019-08-19 17:22] LABS: ABSOLUTE BASOPHILS # (AUTO) 0.1 10^3/uL (0.0-0.2); ABSOLUTE EOSINOPHILS # (AUTO) 0.2 10^3/uL (0.0-0.6); ABSOLUTE LYMPHOCYTES (AUTO) 2.7 10^3/uL (0.5-4.7); ABSOLUTE MONOCYTES (AUTO) 0.8 10^3/uL (0.1-1.4); ABSOLUTE NEUT (AUTO) 8.3 10^3/uL (1.7-8.2); BASOPHILS % (AUTO) 0.9 % (0-2); EOSINOPHILS % (AUTO) 1.8 % (0-6); HEMATOCRIT 42.2 % (36.0-47.0); HEMOGLOBIN 14.3 g/dL (12.0-15.5); MEAN CORPUSCULAR HEMOGLOBIN 30.6 pg (27.0-33.4); MEAN CORPUSCULAR VOLUME 90 fl (80-97); MONOCYTES % (AUTO) 6.7 % (3-13); PLATELET COUNT 264 10^3/uL (150-450); RED BLOOD COUNT 4.69 10^6/uL (3.72-5.28); RED CELL DISTRIBUTION WIDTH 13.3 % (11.5-14.0); SEGMENTED NEUTROPHILS % (AUTO) 68.6 % (42-78); TOTAL CELLS COUNTED % (AUTO) 100 %; WHITE BLOOD COUNT 12.2 10^3/uL (4.0-10.5)
[2019-08-19 17:24] LABS: ALBUMIN 3.9 g/dL (3.5-5.0); ALKALINE PHOSPHATASE 42 U/L (38-126); ANION GAP 10 (5-19); ASPARTATE AMINO TRANSFERASE 28 U/L (14-36); BILIRUBIN,DIRECT 0.2 mg/dL (0.0-0.4); BILIRUBIN,TOTAL 0.5 mg/dL (0.2-1.3); BLOOD UREA NITROGEN 27 mg/dL (7-20); CALCIUM 9.3 mg/dL (8.4-10.2); CARBON DIOXIDE 26 mmol/L (22-30); CHLORIDE 107 mmol/L (98-107); GLUCOSE 95 mg/dL (75-110); TOTAL PROTEIN 7.7 g/dL (6.3-8.2)
[2019-08-19 17:38] LABS: A TYPE INFLUENZA AG NEGATIVE (NEGATIVE); B INFLUENZA AG NEGATIVE (NEGATIVE)
[2019-08-19] MEDS: ACETAMINOPHEN 325 MG TABLET PO ONE ×2 (17:40→17:44)
[2019-08-19 18:48] LABS: APPEARANCE,URINE CLEAR; BILIRUBIN,URINE NEGATIVE (NEGATIVE); COLOR,URINE STRAW; GLUCOSE, URINE NEGATIVE (NEGATIVE); KETONES,URINE NEGATIVE (NEGATIVE); LEUKOCYTE ESTERASE,URINE SMALL (NEGATIVE); NITRITE,URINE NEGATIVE (NEGATIVE); PROTEIN,URINE NEGATIVE (NEGATIVE); URINE SPECIFIC GRAVITY 1.011; UROBILINOGEN,URINE NEGATIVE mg/dL (<2.0)
--- NOTE | 2019-08-19 19:23 | RADIOLOGY REPORT (SQ) ---
EXAM DESCRIPTION: CHEST SINGLE VIEW COMPLETED DATE/TIME: 08/19/2019 6:37 pm REASON FOR STUDY: cough COMPARISON: Chest x-ray 06/12/2014, 02/16/2007 EXAM PARAMETERS: NUMBER OF VIEWS: One view. TECHNIQUE: Single frontal radiographic view of the chest acquired. RADIATION DOSE: NA LIMITATIONS: None. FINDINGS: LUNGS AND PLEURA: No consolidation, pneumothorax or pleural effusion. MEDIASTINUM AND HILAR STRUCTURES: Contour normal. HEART AND VASCULAR STRUCTURES: Heart normal in size. Normal vasculature. BONES: No acute findings. HARDWARE: None in the chest. IMPRESSION: NO ACUTE RADIOGRAPHIC FINDING IN THE CHEST. TECHNICAL DOCUMENTATION: JOB ID: [id number] 2010 [employer]- All Rights Reserved Reading location - IP/workstation name: [email or web address]
[2019-08-19] MEDS ORDERED: CEFTRIAXONE 1 GM/D5W RTU 1 GM/50 ML RTUPB IV ONE (20:01)
[2019-08-19 21:29] VITALS: BP 166/64
--- NOTE | 2019-08-20 05:49 | EKG REPORT ---
SEVERITY:- ABNORMAL ECG - SINUS RHYTHM LVH WITH SECONDARY REPOLARIZATION ABNORMALITY : Confirmed by: Kassandra Garcia MD 20-Aug-2019 05:48:01
== END 2019-08-19 21:15 | disposition home or self-care (01) ==
LOC: ER 16:06
DX: N30.90 Cystitis, unspecified without hematuria (principal); F03.91 Unspecified dementia, unspecified severity, with behavioral disturbance; R05 Cough; R50.9 Fever, unspecified; R53.1 Weakness; Z88.2 Allergy status to sulfonamides; Z66 Do not resuscitate; Z20.828 Contact with and (suspected) exposure to other viral communicable diseases
CPT/HCPCS: 93005; 99284; 96365; 36415; 87040; 83605; 83735; 85025; 87635; 80053; 81001; 84484; 87804; 71045; 93010; J0696